=== PATIENT | male | born 1950 | race Two or more races ===

== ENCOUNTER → 2017-04-16 | Outpatient (CLI) | payer OTHER | END | disposition home or self-care (01) | LOC: LAB 07:38 | DX: I11.0 Hypertensive heart disease with heart failure (principal); D53.9 Nutritional anemia, unspecified; E11.9 Type 2 diabetes mellitus without complications; E04.0 Nontoxic diffuse goiter; E78.2 Mixed hyperlipidemia; D58.2 Other hemoglobinopathies; D55.9 Anemia due to enzyme disorder, unspecified; D51.0 Vitamin B12 deficiency anemia due to intrinsic factor deficiency; D69.3 Immune thrombocytopenic purpura; D69.49 Other primary thrombocytopenia; D51.1 Vitamin B12 deficiency anemia due to selective vitamin B12 malabsorption with proteinuria; I10 Essential (primary) hypertension; D68.8 Other specified coagulation defects; D50.8 Other iron deficiency anemias; D51.8 Other vitamin B12 deficiency anemias ==

== ENCOUNTER 2017-09-21 08:27 | Outpatient (CLI) | payer OTHER | END 2017-09-21 08:36 | disposition home or self-care (01) | LOC: LAB 08:27 | DX: D51.0 Vitamin B12 deficiency anemia due to intrinsic factor deficiency (principal); D69.3 Immune thrombocytopenic purpura; D69.49 Other primary thrombocytopenia; D51.1 Vitamin B12 deficiency anemia due to selective vitamin B12 malabsorption with proteinuria; E11.9 Type 2 diabetes mellitus without complications; I10 Essential (primary) hypertension; E78.2 Mixed hyperlipidemia; D50.0 Iron deficiency anemia secondary to blood loss (chronic); D51.8 Other vitamin B12 deficiency anemias; B18.8 Other chronic viral hepatitis; D50.8 Other iron deficiency anemias ==

== ENCOUNTER 2018-06-18 08:16 | Outpatient (CLI) | payer OTHER | END 2018-06-18 15:00 | disposition home or self-care (01) | LOC: LAB 08:16 | DX: D51.0 Vitamin B12 deficiency anemia due to intrinsic factor deficiency (principal); D69.3 Immune thrombocytopenic purpura; D69.49 Other primary thrombocytopenia; D51.1 Vitamin B12 deficiency anemia due to selective vitamin B12 malabsorption with proteinuria; E11.9 Type 2 diabetes mellitus without complications; I10 Essential (primary) hypertension; E78.2 Mixed hyperlipidemia; D50.8 Other iron deficiency anemias; D51.8 Other vitamin B12 deficiency anemias ==

== ENCOUNTER 2018-12-30 06:55 | Outpatient (CLI) | payer OTHER | END 2018-12-30 07:15 | disposition home or self-care (01) | LOC: LAB 06:55 | DX: D51.0 Vitamin B12 deficiency anemia due to intrinsic factor deficiency (principal); D69.3 Immune thrombocytopenic purpura; D69.49 Other primary thrombocytopenia; D51.1 Vitamin B12 deficiency anemia due to selective vitamin B12 malabsorption with proteinuria; E11.9 Type 2 diabetes mellitus without complications; I10 Essential (primary) hypertension; E78.2 Mixed hyperlipidemia; D50.8 Other iron deficiency anemias; D51.8 Other vitamin B12 deficiency anemias; K90.89 Other intestinal malabsorption; E03.8 Other specified hypothyroidism; R97.0 Elevated carcinoembryonic antigen [CEA]; R97.8 Other abnormal tumor markers ==

== ENCOUNTER 2019-06-27 07:46 | Outpatient (CLI) | payer OTHER | END 2019-06-27 07:54 | disposition home or self-care (01) | LOC: LAB 07:46 | DX: D50.8 Other iron deficiency anemias (principal); I10 Essential (primary) hypertension; D51.0 Vitamin B12 deficiency anemia due to intrinsic factor deficiency; D69.3 Immune thrombocytopenic purpura; D69.49 Other primary thrombocytopenia; D51.1 Vitamin B12 deficiency anemia due to selective vitamin B12 malabsorption with proteinuria; E11.9 Type 2 diabetes mellitus without complications; E78.2 Mixed hyperlipidemia; D51.8 Other vitamin B12 deficiency anemias; E55.9 Vitamin D deficiency, unspecified; K90.89 Other intestinal malabsorption ==

== ENCOUNTER 2021-01-14 07:14 | Outpatient (CLI) | payer OTHER | END 2021-01-14 07:15 | disposition home or self-care (01) | LOC: LAB 07:14 | PROVIDERS: ATTEND Internal Medicine Hematology & Oncology | DX: D50.8 Other iron deficiency anemias (principal); R79.89 Other specified abnormal findings of blood chemistry; I10 Essential (primary) hypertension; R74.02 Elevation of levels of lactic acid dehydrogenase [LDH]; K76.89 Other specified diseases of liver; D51.8 Other vitamin B12 deficiency anemias; E55.9 Vitamin D deficiency, unspecified; D51.0 Vitamin B12 deficiency anemia due to intrinsic factor deficiency; D69.3 Immune thrombocytopenic purpura; D69.49 Other primary thrombocytopenia; D51.1 Vitamin B12 deficiency anemia due to selective vitamin B12 malabsorption with proteinuria; E11.9 Type 2 diabetes mellitus without complications; E78.2 Mixed hyperlipidemia ==

== ENCOUNTER 2021-07-10 07:26 | Outpatient (CLI) | payer OTHER | END 2021-07-10 07:48 | disposition home or self-care (01) | LOC: LAB 07:26 | PROVIDERS: ATTEND Internal Medicine Hematology & Oncology | DX: D51.0 Vitamin B12 deficiency anemia due to intrinsic factor deficiency (principal); D69.3 Immune thrombocytopenic purpura; D69.49 Other primary thrombocytopenia; D51.1 Vitamin B12 deficiency anemia due to selective vitamin B12 malabsorption with proteinuria; E11.9 Type 2 diabetes mellitus without complications; I10 Essential (primary) hypertension; E78.2 Mixed hyperlipidemia ==

== ENCOUNTER 2022-01-07 08:23 | Outpatient (CLI) | payer OTHER | END 2022-01-07 08:24 | disposition home or self-care (01) | LOC: LAB 08:23 | PROVIDERS: ATTEND Internal Medicine Hematology & Oncology | DX: D50.8 Other iron deficiency anemias (principal); R79.9 Abnormal finding of blood chemistry, unspecified; I10 Essential (primary) hypertension; R74.02 Elevation of levels of lactic acid dehydrogenase [LDH]; K76.89 Other specified diseases of liver; D51.8 Other vitamin B12 deficiency anemias; E55.9 Vitamin D deficiency, unspecified; E78.2 Mixed hyperlipidemia; E03.8 Other specified hypothyroidism; R97.0 Elevated carcinoembryonic antigen [CEA]; R97.8 Other abnormal tumor markers; R97.20 Elevated prostate specific antigen [PSA]; D51.0 Vitamin B12 deficiency anemia due to intrinsic factor deficiency; D69.49 Other primary thrombocytopenia; D69.3 Immune thrombocytopenic purpura; D51.1 Vitamin B12 deficiency anemia due to selective vitamin B12 malabsorption with proteinuria; E11.9 Type 2 diabetes mellitus without complications ==

== ENCOUNTER 2022-09-29 08:37 | Outpatient (CLI) | payer OTHER | END 2022-09-29 08:42 | disposition home or self-care (01) | LOC: LAB 08:37 | PROVIDERS: ATTEND Internal Medicine Hematology & Oncology | DX: D50.8 Other iron deficiency anemias (principal); R79.9 Abnormal finding of blood chemistry, unspecified; I10 Essential (primary) hypertension; R74.02 Elevation of levels of lactic acid dehydrogenase [LDH]; K76.89 Other specified diseases of liver; D51.8 Other vitamin B12 deficiency anemias; E55.9 Vitamin D deficiency, unspecified; E78.2 Mixed hyperlipidemia; E03.8 Other specified hypothyroidism; R97.0 Elevated carcinoembryonic antigen [CEA]; R97.8 Other abnormal tumor markers; R97.20 Elevated prostate specific antigen [PSA]; D51.0 Vitamin B12 deficiency anemia due to intrinsic factor deficiency; D69.3 Immune thrombocytopenic purpura; D69.49 Other primary thrombocytopenia; D51.1 Vitamin B12 deficiency anemia due to selective vitamin B12 malabsorption with proteinuria; E11.9 Type 2 diabetes mellitus without complications ==

== ENCOUNTER 2023-04-20 08:58 | Outpatient (CLI) | payer OTHER ==
[2023-04-20 09:27] LABS: HEMATOCRIT 40.5 % (39.0-48.0); HEMOGLOBIN 13.7 g/dL (13-16.00); MEAN CELL VOLUME 89.6 fL (80.0-100.00); MEAN CORPUSCULAR HEMOGLOBIN 30.3 pg (27.00-32.0); MEAN CORPUSCULAR HGB CONC 33.8 g/dl (32.0-36.0); PLATELET COUNT 146 K/uL (150-450); RED BLOOD COUNT 4.52 M/uL (4.00-6.00); RED CELL DISTRIBUTION WIDTH 14.9 % (11.5-14.5)
[2023-04-20 10:02] LABS: MANUAL PLATELET COUNT 252
[2023-04-20 10:06] LABS: PLATELET ESTIMATE NORMAL (NORMAL)
[2023-04-20 10:08] LABS: ALBUMIN 3.7 gm/dL (3.4-5.0); BILIRUBIN TOTAL 0.42 mg/dL (0.3-1.2); CALCIUM 9.6 mg/dL (8.5-10.1); CHOL HDL RATIO 2.6 (0-5.0); CREATININE SERUM 1.35 mg/dL (0.70-1.30); GFR 51.95; GLOBULINA 3.2 G/DL (2.4-3.5); POTASSIUM 3.95 mEq/L (3.5-5.1); PROSTATIC SPECIFIC ANTIGEN 1.88 NG/ML (0.010-4.00); T4 FREE 0.87 NG/ML (0.76-1.46); TOTAL PROTEIN 6.9 gm/dL (6.4-8.2)
[2023-04-20 11:07] LABS: FOLIC ACID > 20.00 ng/ml (4.78-20)
== END 2023-04-20 08:59 | disposition home or self-care (01) ==
LOC: LAB 08:58
PROVIDERS: ATTEND Internal Medicine Hematology & Oncology
DX: D51.0 Vitamin B12 deficiency anemia due to intrinsic factor deficiency (principal); D69.3 Immune thrombocytopenic purpura; D69.49 Other primary thrombocytopenia; D51.1 Vitamin B12 deficiency anemia due to selective vitamin B12 malabsorption with proteinuria; E11.9 Type 2 diabetes mellitus without complications; I10 Essential (primary) hypertension; E78.2 Mixed hyperlipidemia

== ENCOUNTER 2024-06-16 06:47 | Outpatient (CLI) | payer OTHER ==
[2024-06-16 07:23] LABS: HEMATOCRIT 40.5 % (39.0-48.0); MEAN CELL VOLUME 89.7 fL (80.0-100.00); MEAN CORPUSCULAR HGB CONC 34.6 g/dl (32.0-36.0); PLATELET COUNT 141 K/uL (150-450); RED BLOOD COUNT 4.51 M/uL (4.00-6.00); RED CELL DISTRIBUTION WIDTH 14.6 % (11.5-14.5)
[2024-06-16 09:09] LABS: ALBUMIN 3.6 gm/dL (3.4-5.0); BILIRUBIN TOTAL 0.41 mg/dL (0.3-1.2); CALCIUM 9.3 mg/dL (8.5-10.1); CREATININE SERUM 1.33 mg/dL (0.70-1.30); GFR 52.7; GLOBULINA 3.4 G/DL (2.4-3.5); POTASSIUM 3.84 mEq/L (3.5-5.1); T4 FREE 0.87 NG/ML (0.76-1.46); TSH 1.53 uIU/mL (0.358-3.74)
[2024-06-16 09:11] LABS: PROSTATIC SPECIFIC ANTIGEN 7.34 NG/ML (0.010-4.00)
[2024-06-16 09:48] LABS: MANUAL PLATELET COUNT 280
[2024-06-16 09:51] LABS: PLATELET ESTIMATE NORMAL (NORMAL)
[2024-06-16 11:08] LABS: FOLIC ACID > 20.00 ng/ml (4.78-20); VITAMIN D3 25 HYDROXY 39.68 ng/ml (30-120)
== END 2024-06-16 06:53 | disposition home or self-care (01) ==
LOC: LAB 06:47
PROVIDERS: ATTEND Internal Medicine Hematology & Oncology
DX: D51.0 Vitamin B12 deficiency anemia due to intrinsic factor deficiency (principal); D69.3 Immune thrombocytopenic purpura; D69.49 Other primary thrombocytopenia; D51.1 Vitamin B12 deficiency anemia due to selective vitamin B12 malabsorption with proteinuria; E11.9 Type 2 diabetes mellitus without complications; I10 Essential (primary) hypertension; E78.2 Mixed hyperlipidemia; D50.8 Other iron deficiency anemias; R79.9 Abnormal finding of blood chemistry, unspecified; R74.02 Elevation of levels of lactic acid dehydrogenase [LDH]; K76.89 Other specified diseases of liver; D51.8 Other vitamin B12 deficiency anemias; E55.9 Vitamin D deficiency, unspecified; R97.0 Elevated carcinoembryonic antigen [CEA]